=== PATIENT | female | born 1990 | race Caucasian/White ===

== ENCOUNTER 2017-01-18 22:56 | Emergency (ER) | payer MEDICAID ==
[~2017-01-18] VITALS: Ht 154.9 cm; Wt 69.0 kg
[~2017-01-18 22:56] MED LIST: BEN25 PO; EPIN0.3P4 INJ; FAMO-18 PO; FERR-55 PO; HYDR-3498 PO; ONDA4TAB8 PO; PRED20TA PO
[2017-01-18 23:47] VITALS: Ht 154.9 cm; Wt 69.0 kg
[2017-01-19] MEDS ORDERED: ONDANSETRON (ODT) 4 MG TAB ODT STA (00:20)
[2017-01-19] MEDS ORDERED: IBUPROFEN 200 MG TAB PO ONE (00:30)
[2017-01-19 00:58] LABS: ADD UMIC YES; UR BILIRUBIN (Dip) NEGATIVE (NEGATIVE); UR BLOOD (Dip) TRACE (NEGATIVE); UR CLARITY CLEAR (CLEAR); UR COLOR LT. YELLOW (YELLOW); UR GLUCOSE (Dip) NEGATIVE (NEGATIVE); UR KETONES (Dip) NEGATIVE (NEGATIVE); UR LEUKOCYTE ESTERASE (Dip) TRACE (NEGATIVE); UR NITRITE (Dip) NEGATIVE (NEGATIVE); UR TOTAL PROTEIN (Dip) NEGATIVE (NEGATIVE); UR UROBILINOGEN (Dip) 0.2 E.U./dL (0.1-1.0)
[2017-01-19 01:32] LABS: UR BACTERIA FEW; UR SQUAMOUS EPITHELIAL CELL FEW; UR TRANSITIONAL EPI CELL OCCASIONAL; URINE RBCS 0-2 /HPF (0)
[2017-01-19 02:38] VITALS: BP 98/62; PULSE 67; RESP 18; TEMP 98.7
--- NOTE | 2017-01-19 02:41 | ERD ---
ER Documentation Chief Complaint Date/Time DATE: 01/19/17 TIME: 02:38 Chief Complaint RIGHT SIDE AP, PT STATES "KIDNEY PAIN", NAUSEA/VOMITING, DIZZY HPI This 26-year-old female presents to the emergency department today with dysuria , urgency with urination and right flank pain, patient reports nausea and vomiting today. Denies history of ovarian cysts. Last menstrual period December. Patient denies fever, or chills, hematuria, or diarrhea. ROS All systems reviewed and are negative except as per history of present illness. Medications Home Meds Active Scripts Nitrofurantoin Monohyd Macrocr* (Macrobid*) 100 Mg Capsr, 100 MG PO BID for 7 Days, CAP Prov:JULIO LOPEZ MD 01/19/17 Famotidine* (Pepcid*) 20 Mg Tablet, 20 MG PO BID for 4 Days, TAB Prov:ADALBERTO LOCKETT PA-C 06/21/16 Diphenhydramine Hcl* (Benadryl*) 25 Mg Cap, 25 MG PO Q6, #30 CAP Prov:ADALBERTO LOCKETT PA-C 06/21/16 Prednisone* (Prednisone*) 20 Mg Tab, 40 MG PO DAILY for 4 Days, TAB Prov:ADALBERTO LOCKETT PA-C 06/21/16 Epinephrine (Epipen 2-Nakul) 0.3 Mg/0.3 Ml Pen.injctr, 1 EA INJ ONCE Y for ALLERGIC REACTION, #1 EA Prov:ADALBERTO LOCKETT PA-C 06/21/16 Famotidine* (Pepcid*) 20 Mg Tablet, 20 MG PO BID for 7 Days, TAB Prov:SUE GIRALDO MD 03/27/15 Ondansetron Hcl* (Zofran*) 4 Mg Tablet, 4 MG PO Q6H for NAUSEA AND/OR VOMITING, #30 TAB Prov:SUE GIRALDO MD 03/27/15 Hydrocodone Bit-Acetaminophen* ([place]*) 5-325 Mg Tab, 1 TAB PO Q6 Y for PAIN, # 20 TAB Prov:SUE GIRALDO MD 03/27/15 Reported Medications Ferrous Sulfate* (Ferrous Sulfate*) 325 Mg Tablet, 325 MG PO DAILY, TAB 01/31/14 Allergies Allergies: Coded Allergies: Penicillins (Verified Allergy, Intermediate, swollen, 01/19/17) diphenhydramine (Verified Allergy, Mild, FEELS LIKE THROAT SWELLS, 01/19/17) morphine (Verified Allergy, Unknown, short of breath, 01/19/17) PMhx/Soc Medical and Surgical Hx: pt denies Medical Hx, pt denies Surgical Hx History of Surgery: No Anesthesia Reaction: No Hx Neurological Disorder: No Hx Respiratory Disorders: No Hx Cardiac Disorders: No Hx Psychiatric Problems: No Hx Miscellaneous Medical Probl: No Hx Alcohol Use: No Hx Substance Use: No Hx Tobacco Use: No Smoking Status: Never smoker Physical Exam Vitals Vital Signs Date Time Temp Pulse Resp B/P Pulse Ox O2 Delivery O2 Flow Rate FiO2 01/19/17 02:38 98.7 67 18 98/62 96 Room Air 01/18/17 23:47 98.7 74 18 114/59 99 Vitals stable, triage notes reviewed Physical Exam Const: No acute distress Head: Atraumatic Eyes: Normal Conjunctiva ENT: Normal External Ears, Nose and Mouth. Neck: Full range of motion..~ No meningismus. Resp: Abd: Soft, non tender, non distended. Negative CVA tenderness Skin: Back: No midline or flank tenderness Ext: Neur: Awake and alert Psych: Normal Mood and Affect Results 24 hrs Laboratory Tests Test 01/19/17 00:45 Urine Color LT. YELLOW Urine Clarity CLEAR Urine pH 6.0 Urine Specific [place] 1.015 Urine Ketones NEGATIVE Urine Nitrite NEGATIVE Urine Bilirubin NEGATIVE Urine Urobilinogen 0.2 E.U./dL Urine Leukocyte Esterase TRACE Urine Microscopic RBC 0-2/HPF Urine Microscopic WBC 5-10/HPF Urine Squamous Epithelial Cells FEW Urine Transitional Epithelial Cells OCCASIONAL Urine Bacteria FEW Urine Hemoglobin TRACE Urine Glucose NEGATIVE% Urine Total Protein NEGATIVE Current Medications Medications (Trade) Dose Ordered Sig/Tyesha Route PRN Reason Start Time Stop Time Status Last Admin Dose Admin Ondansetron HCl (Zofran Odt) 4 mg ONCE STAT ODT 01/19/17 00:20 01/19/17 00:22 DC 01/19/17 00:34 Ibuprofen (Motrin) 400 mg ONCE ONCE PO 01/19/17 00:30 01/19/17 00:31 DC 01/19/17 00:34 Procedures/MDM This pleasant 26-year-old female presents to emergency department with a 2 day history of right flank pain, burning urgency and frequency of urination, nausea and vomiting today. I have low suspicion for pyelonephritis, nephrolithiasis, or ovarian cysts. Low suspicion for . U hCG negative. Urinalysis supports a urinary tract infection with microscopic hematuria, bacteremia, and trace leukocytes. Patient treated with Zofran, and Motrin for pain effectively in emergency department, able to tolerate water prior to discharge. Patient will start Macrobid 100 mg 1 tab p.o. twice daily 7 days. Increase fluids, increase rest, return to emergency department for worsening of symptoms, pain, fever, nausea, vomiting. I feel the patient is stable for discharge at this time with outpatient management and follow-up with primary care physician. I have discussed results, examination findings, the treatment plan with the patient and family present prior to discharge. Indications for emergent reevaluation, side effects of medication were also discussed. All questions were answered. Patient verbalizes understanding and agrees with plan of care. Departure Diagnosis: Primary Impression: UTI (urinary tract infection) Urinary tract infection type: acute cystitis Hematuria presence: with hematuria Qualified Code: N30.01 - Acute cystitis with hematuria Patient Instructions: Understanding Urinary Tract Infections (UTIs) Additional Instructions: Thank you for for coming to [facility] for your care today. Please ask your nurse or provider if you have questions about your care today and do not leave until all your questions have been answered. Please use any medications given as directed and follow-up with your doctor (or the doctor you were referred to) in the next 2-3 days. If you do not have a primary care doctor you may [place] [facility] You may also use motrin and tylenol as needed for fever and/or pain unless instructed otherwise by your provider or nurse. Indications for more urgent follow-up have been discussed, but you may return to the Emergency Department at ANY time for any worrisome or worsening symptoms. If you have abdominal pain, please know that no test or exam you received is perfect and you should follow up within 8 hours for continued pain. If you had any imaging studies today, such as an X-Ray or CT Scan, these studies will be reviewed later by a radiologist. You will be called if there are important findings that were not identified today, so make sure the contact information you provided at registration is correct. If you received any narcotic pain control medicine today, such as Vicodin, Morphine or Dilaudid, your coordination and judgment may be affected for a number of hours. Please do not drive or operate heavy machinery, and you may want someone to assist you at home. If you were given a prescription for narcotic medication, be aware that it is very addictive- use sparingly and only if necessary. KELSI HICKMAN Jan 19, 2017 02:41
[2017-01-19] MEDS ORDERED: NITR-58 PO (10:42)
== END 2017-01-19 02:46 | disposition home or self-care (01) ==
LOC: FTE 22:56
DX: N30.01 Acute cystitis with hematuria (principal)
CPT/HCPCS: 81001; Z7502; Z7610

== ENCOUNTER 2018-03-09 02:50 | Emergency (ER) | END 2018-03-09 06:29 | disposition home or self-care (01) ==